=== PATIENT | female | born 1955 | race Caucasian/White ===

== ENCOUNTER 2017-09-08 11:13 | Day surgery (SDC) | payer BC ==
[2017-09-08] MEDS ORDERED: D5 LR 1000 ML 1,000 ML IV ONE (11:34)
[2017-09-08] MEDS ORDERED: DIPRIVAN VIAL 20 ML ONE (12:11)
[2017-09-08 13:01] VITALS: BP 119/72
== END 2017-09-08 13:00 | disposition home or self-care (01) ==
LOC: SURG1 11:13
PROVIDERS: ATTEND Internal Medicine Gastroenterology
PROC: 0DBP8ZX Excision of Rectum, Via Natural or Artificial Opening Endoscopic, Diagnostic (ICD-10-PCS; principal; 2017-09-08 17:00)
PROC: 0DJD8ZZ Inspection of Lower Intestinal Tract, Via Natural or Artificial Opening Endoscopic (ICD-10-PCS; principal; 2017-09-08 17:00)
DX: Z80.0 Family history of malignant neoplasm of digestive organs (principal); Z86.010 Personal history of colon polyps; K63.5 Polyp of colon; K57.30 Diverticulosis of large intestine without perforation or abscess without bleeding; K64.0 First degree hemorrhoids
CPT/HCPCS: A4217; J3490; J7120